=== PATIENT | female | born 1945 | race Caucasian/White ===

== ENCOUNTER 2025-03-03 12:10 | Outpatient (CLI) | payer OTHER, SELFPAY ==
--- NOTE | 2025-03-03 12:46 | PDOC.PAIN ---
Date of service: 03/03/25 Time of Service: 13:07 Pain Managment Procedure Note Procedure Note Procedure Note: Ultrasound guidedTrigger Point Injection ? Location: Right thoracic parspinous ? Pre-procedure Diagnosis:? M79.10- Myalgia, unspecified site ? Post-procedure Diagnosis:? The same as above ? Sedation: none? Estimated blood loss: < 1 ml ? Surgeon:? Etienne Arrieta MD ? Procedure Detail:?? The procedure and potential risks were explained to the patient and informed written consent was obtained. Time out was performed in procedure room with nursing staff confirming the patient's identity, procedure to be performed, allergies, and any blood thinning or anti-platelet medications. Sterile gloves were used, a face mask was worn, and new single dose vials of all medications were used with the top being swabbed with alcohol and given time to dry prior to withdrawal of medication.? Trigger points were palpated and confirmed to reproduce the patient?s pain symptoms.? Pre-injection ultrasound scanning of the area of interest was performed using Linear transducer, identifying relevant anatomy, landmarks, and neurovascular structures allowing for optimal needle path. The site was then prepared in the usual sterile fashion, using thorough Chlorhexadine preparation of the skin and sterile draping. The same ultrasound transducer was then passed into the sterile field using sterile probe cover and sterile ultrasound gel. Using high-frequency ultrasound probe with sterile cover target was identified.? Right paraspinous muscles. A 25-gauge 1.5 inch needle was advanced to the target.? following negative aspiration a total of 8 ml from a mixture of 0.5% bupivacaine and 30 mg Depo-Medrol was injected in 4 different locations.? ? The patient tolerated the procedure well. Patient discharged home in stable condition. PAIN: PRE-PROCEDURE 7/10 POST-PROCEDURE 0/10 Plan:? Follow up prn. Will consider repeating or consider Botox injection depending on how she does Coding Conscious Sedation used for procedure: No CPT Codes: TPI Single/Multi 1 or 2 Muscles - 95304 ([id number] ~G) Ultrasound - 76922 ([id number] ~G) Additional Codes: Date of Service (24963) Date of service: 03/03/25 Diagnoses: M79.10- Myalgia, unspecified site
[2025-03-03 12:55] VITALS: PULSE 83; O2SAT 95
[2025-03-03 13:00] VITALS: PULSE 77; O2SAT 96
[2025-03-03] MEDS: Nerve Block Tray 1 EACH MC (13:06)
[2025-03-03] MEDS: methylPREDNISolone ACETATE 40 MG/ML VIAL IJ (13:08)
[2025-03-03] MEDS: Bupivacaine 0.5% Pres-Free 10 ML VIAL IJ (13:09)
== END 2025-03-03 12:11 | disposition home or self-care (01) ==
PROVIDERS: PCP Family Medicine; Visit Provider Anesthesiology Pain Medicine
DX: M79.10 Myalgia, unspecified site (principal)
CPT/HCPCS: 20552; J0665; J1010